=== PATIENT | male | born 1975 | race Caucasian/White ===

== ENCOUNTER 2017-03-23 13:28 | Emergency (ER) | payer BC, MEDICAID ==
[2017-03-23] MEDS ORDERED: Aspirin Low Dose CHEW TAB* 81 MG PO ONE (13:58)
[2017-03-23 14:16] VITALS: BP 135/84
--- NOTE | 2017-03-23 14:18 | UC ---
Dagmar Mccloud Salem, scribed for Lucero Krishna MD on 03/23/17 at 1353 . Dizzy HPI HPI Summary: Patient is a 42 y/o M who presents to the with chest pain, sob, dizziness progressively worse over last couple days. He reports that he bought a home this past year and it has been a bit musty. He reports finding brown mold on the madrigal of the house and that he has a hx of susceptibility to yellow mold. He attempted to clean the mold yesterday without using a face mask and slept in the house. He reports SOB, HEALY, confusion, and memory issues since. He states that his is asthmatic and she was in the ED recently with similar sx. He moved his family out of the house recently. Pain is midsternal. Non-reproducible. Non-positional. + dizzy with sitting up and standing up. Patients medication reviewed this visit. - History Of Current Complaint Stated Complaint: DIZZY SOB Time Seen by Provider: 03/23/17 13:47 Hx Obtained From: Patient Onset/Duration: Gradual Onset, Lasting Days, Still Present Timing: Days Severity Initially: Moderate Severity Currently: Moderate Pain Intensity: 0 Pain Scale Used: 0-10 Numeric Character: Dizzy Aggravating Factor(s): Position Change Alleviating Factor(s): Lying Down Associated Signs And Symptoms: Positive: SOB - Allergies/Home Medications Allergies/Adverse Reactions: Allergies Allergy/AdvReac Type Severity Reaction Status Date / Time No Known Allergies Allergy Verified 08/29/15 08:03 PMH/Surg Hx/FS Hx/Imm Hx Previously Healthy: Yes - Surgical History Surgical History: None - Family History Known Family History: Positive: Cardiac Disease - [place] grandfather, maternal., Hypertension, Other - [place]. TIA. - Social History Alcohol Use: None Substance Use Type: None Smoking Status (MU): Former Smoker - F0r 20 years, but hasn't for 7 years. Review of Systems Constitutional: Negative Skin: Negative Eyes: Negative ENT: Negative Respiratory: Other - See HPI. Cardiovascular: Chest Pain Gastrointestinal: Negative Genitourinary: Negative Motor: Weakness Neurovascular: Other - memory difficulty Musculoskeletal: Arthralgia, Myalgia Neurological: Headache All Other Systems Reviewed And Are Negative: Yes Physical Exam Triage Information Reviewed: Yes Appearance: Well-Nourished, Other: - Appears tired. Vital Signs: Initial Vital Signs Temp 98.2 F 03/23/17 13:33 Pulse 75 03/23/17 13:33 Resp 16 03/23/17 13:33 BP 148/82 03/23/17 13:33 Pulse Ox 100 03/23/17 13:33 Vital Signs Reviewed: Yes Eye Exam: Normal ENT Exam: Normal Neck exam: Normal Neck: Positive: Supple, Nontender Respiratory Exam: Normal - no dyspnea, no tachypnea, normal respiratory rate Respiratory: Positive: Chest non-tender, Lungs clear, Normal breath sounds, No respiratory distress, No accessory muscle use Cardiovascular Exam: Normal - Heart rate regular, good general skin color, good capillary refill Cardiovascular: Positive: RRR, No Murmur, Pulses Normal, Brisk Capillary Refill Abdominal Exam: Normal Abdomen Description: Positive: Nontender, No Organomegaly, Soft Bowel Sounds: Positive: Present Musculoskeletal Exam: Normal Musculoskeletal: Positive: Strength Intact Neurological Exam: Normal - nonfocal, grossly intact Psychological Exam: Normal - conversing easily and appropriately Skin Exam: Normal - no visible or reported rash, Other - Not diaphoretic. Diagnostics - EKG Cardiac Rate: NL - Sinus @ [address] elevation, probably nml recall pattern. NC: 144. QTc: 397. Dizzy Course/Dx - Course Course Of Treatment: No new problems in CCC. Reviewed ekg w/ pt and c/w previous ekg 2004 (repol / elev not noted in 2004). No wheezing noted at examination. No rash. D/w pt, recommend further evaluation and management in the ED. He expresses understanding and agreement, will go via EMS. D/W Dr Perrin , ED. Will order ASA and oxygen for transport. - Differential Dx/Diagnosis Provider Diagnoses: chest pain, sob, dizzy - Physician Notifications Discussed Patient Care With: Blade Perrin Time Discussed With Above Provider: 14:03 Instructed by Provider To: Other - Discussed case. Will accept transfer. Discharge - Discharge Plan Condition: Stable Disposition: TRANS HIGHER LVL OF CARE FAC Discharge Disposition Comment: [facility] [place] - ED. The documentation as recorded by the Dagmar childress Salem accurately reflects the service I personally performed and the decisions made by me, Lucero Krishna MD.
== END 2017-03-23 14:25 | disposition short-term general hospital (02) ==
LOC: UCEAST 13:28
DX: R07.9 Chest pain, unspecified (principal); R06.02 Shortness of breath; R42 Dizziness and giddiness; Z87.891 Personal history of nicotine dependence
CPT/HCPCS: 93005; 99213; A9270-GY; G0463

== ENCOUNTER 2017-03-23 14:40 | Observation (INO) | payer BC, MEDICAID ==
[2017-03-23 15:41] LABS: Hematocrit 46 % (42-52); Mean Corpuscular HGB Conc 35 g/dl (31-36); Mean Corpuscular Hemoglobin 32 pg (27-31); Mean Corpuscular Volume 94 fL (80-94); Mean Platelet Volume 9 um3 (7.4-10.4); Red Blood Count 4.95 10^6/ul (4.0-5.4); Red Cell Distribution Width 12 % (10.5-15); White Blood Count 7.4 10^3/ul (3.5-10.8)
[2017-03-23 15:52] LABS: ALT 24 U/L (7-52); AST 18 U/L (13-39); Albumin 4.6 g/dL (3.2-5.2); Alkaline Phosphatase 39 U/L (34-104); Anion Gap 9 mmol/L (2-11); BUN/Creatinine Ratio 13.5 (8-20); Blood Urea Nitrogen 15 mg/dL (6-24); C Reactive Protein < 1.00 mg/L (< 5.00); CO2 Carbon Dioxide 22 mmol/L (22-32); Calcium 9.9 mg/dL (8.6-10.3); Chloride 106 mmol/L (101-111); EGFR African American 93.9 (>60); Globulin 2.7 g/dL (2-4); Glucose 102 mg/dL (70-100); Magnesium 1.9 mg/dL (1.9-2.7); Sodium 137 mmol/L (133-145); Total Protein 7.3 g/dL (6.4-8.9)
[2017-03-23 15:56] LABS: Troponin I 0.04 ng/mL (<0.04)
[2017-03-23 16:00] LABS: TSH (Thyroid Stimulating Horm) 1.97 mcIU/mL (0.34-5.60)
[2017-03-23] MEDS ORDERED: Aspirin Low Dose CHEW TAB* 81 MG PO ONE (16:48)
[2017-03-23] MEDS ORDERED: Ondansetron INJ* 2 MG/ML VIAL IV PRN (16:48)
[2017-03-23] MEDS ORDERED: Acetaminophen TAB* 325 MG PO PRN (16:48)
--- NOTE | 2017-03-23 17:45 | RAD ---
Indication: Dyspnea on exertion. Dizziness. Comparison: August 29, 2015 Technique: Upright AP 1705 hours Report: Clear lungs and pleural spaces. Negative for pneumothorax. The heart, pulmonary vasculature, and mediastinal contours are unremarkable. Unremarkable osseous structures and soft tissue contours. IMPRESSION: No evidence for acute intrathoracic disease.
[2017-03-23 18:05] LABS: Urine Bilirubin Negative (Negative); Urine Glucose Negative (Negative); Urine Nitrite Negative (Negative)
[2017-03-23 18:19] LABS: Erythrocyte Sed Rate 8 mm/Hr (0-14)
--- NOTE | 2017-03-23 18:36 | ED ---
Christelle Mccloud Alfonso, scribed for Michael Stanley MD on 03/23/17 at 1516 . Dizziness - HPI Summary HPI Summary: This patient is a 42 year old male [facility] c/o gradually worsening dizziness since a few days ago. He is currently lightheaded, but is currently not experiencing any of his other reported symptoms. Symptoms aggravated by exertion and alleviated by nothing. He reports tiredness, a pressured headache (intermittent), photophobia, confusion, tremors, a metallic taste, and memory issues. He also reports pressured midsternal CP, SOB, urinary incontinence, and a dry mouth. He states there has been a "mold exposure issue in the house we moved into less than a year ago." He attempted to clean a " brown mold" off a wall yesterday without using a face mask. He states that his is asthmatic and she presented to the ED recently for "similar symptoms." He and his family moved out of the house yesterday. - History Of Current Complaint Chief Complaint: EDDizziness Stated Complaint: SOB/DIZZY Time Seen by Provider: 03/23/17 14:48 Hx Obtained From: Patient Onset/Duration: Resolved, Gradually - Since a few days ago Timing: Constant Severity Initially: Moderate Severity Currently: Moderate Character: Lightheaded, Dizzy Aggravating Factor(s): Exertion Alleviating Factor(s): Nothing Associated Signs And Symptoms: Positive: Chest Pain - pressured midsternal CP, SOB, Other: - Positive pressured headache (intermittent), tiredness, photophobia , confusion, tremors, a metallic taste, memory issues, urinary incontinence, and a dry mouth. - Allergies/Home Medications Allergies/Adverse Reactions: Allergies Allergy/AdvReac Type Severity Reaction Status Date / Time No Known Allergies Allergy Verified 08/29/15 08:03 Home Medications: Home Medications NK [No Home Medications Reported] 03/23/17 [History Confirmed 03/23/17] PMH/Surg Hx/FS Hx/Imm Hx Endocrine/Hematology History: Denies: Hx Diabetes, Hx Thyroid Disease Cardiovascular History: Denies: Hx Hypertension Respiratory History: Denies: Hx Asthma, Hx Chronic Obstructive Pulmonary Disease (COPD) GI History: Denies: Hx Ulcer Infectious Disease History: Denies: Hx Clostridium Difficile, Hx Hepatitis, Hx Human Immunodeficiency Virus (HIV), Hx of Known/Suspected MRSA, Hx Shingles, Hx Tuberculosis, Hx Known/ Suspected VRE, Hx Known/Suspected VRSA, History Other Infectious Disease - Family History Known Family History: Positive: Cardiac Disease - [place] grandfather, maternal., Hypertension, Other - [place]. TIA. - Social History Alcohol Use: None Substance Use Type: Reports: None Smoking Status (MU): Former Smoker - F0r 20 years, but hasn't for 7 years. Review of Systems Positive: Other - Positive dry mouth. Positive: Chest Pain - Pressued midsternal CP Positive: Shortness Of Breath Positive: incontinence Neurological: Other - Positive pressured headache (intermittent), dizziness, lightheadedness, tiredness, photophobia, confusion, tremors, a metallic taste, and memory issues. All Other Systems Reviewed And Are Negative: Yes Physical Exam Triage Information Reviewed: Yes Vital Signs On Initial Exam: Initial Vitals Temp Pulse Resp BP Pulse Ox 99.0 F 60 14 123/82 100 03/23/17 14:51 03/23/17 14:51 03/23/17 14:51 03/23/17 14:51 03/23/17 14:51 Vital Signs Reviewed: Yes Appearance: Positive: Well-Appearing, No Pain Distress Skin: Positive: Warm, Skin Color Reflects Adequate Perfusion, Dry Head/Face: Positive: Normal Head/Face Inspection Eyes: Positive: Normal ENT: Positive: Normal ENT inspection Neck: Positive: Supple, Nontender Respiratory/Lung Sounds: Positive: Clear to Auscultation, Breath Sounds Present Cardiovascular: Positive: RRR Abdomen Description: Positive: Nontender, Soft Bowel Sounds: Positive: Present Musculoskeletal: Positive: Normal Neurological: Positive: Normal, Sensory/Motor Intact, Alert, Oriented to Person Place, Time, CN Intact II-III Psychiatric: Positive: Affect/Mood Appropriate Diagnostics - Vital Signs Vital Signs Temp Pulse Resp BP Pulse Ox 03/23/17 16:30 56 12 137/87 99 03/23/17 16:00 56 11 124/70 100 03/23/17 15:33 58 16 124/86 98 03/23/17 15:31 58 17 126/88 99 03/23/17 15:28 61 14 120/84 98 03/23/17 15:04 64 14 141/98 98 03/23/17 15:03 61 14 99 03/23/17 14:58 14 03/23/17 14:51 99.0 F 60 14 123/82 100 - Laboratory Lab Results: Lab Results 03/23/17 03/23/17 03/23/17 Range/Units 14:00 14:00 14:00 WBC 7.4 (3.5-10.8) 10^3/ul RBC 4.95 (4.0-5.4) 10^6/ul Hgb 16.0 (14.0-18.0) g/dl Hct 46 (42-52) % MCV 94 (80-94) fL MCH 32 H (27-31) pg MCHC 35 (31-36) g/dl RDW 12 (10.5-15) % Plt Count 200 (150-450) 10^3/ul MPV 9 (7.4-10.4) um3 Neut % (Auto) 76.6 (38-83) % Lymph % (Auto) 16.9 L (25-47) % Garza % (Auto) 6.0 (1-9) % Eos % (Auto) 0.2 (0-6) % Baso % (Auto) 0.3 (0-2) % Absolute Neuts (auto) 5.6 (1.5-7.7) 10^3/ul Absolute Lymphs (auto) 1.2 (1.0-4.8) 10^3/ul Absolute Monos (auto) 0.4 (0-0.8) 10^3/ul Absolute Eos (auto) 0 (0-0.6) 10^3/ul Absolute Basos (auto) 0 (0-0.2) 10^3/ul Absolute Nucleated RBC 0 10^3/ul Nucleated RBC % 0 ESR 8 (0-14) mm/Hr D-Dimer, Quantitative < 200 (Less Than 230) ng/mL Sodium 137 (133-145) mmol/L Potassium 4.0 (3.5-5.0) mmol/L Chloride 106 (101-111) mmol/L Carbon Dioxide 22 (22-32) mmol/L Anion Gap 9 (2-11) mmol/L BUN 15 (6-24) mg/dL Creatinine 1.11 (0.67-1.17) mg/dL Est GFR ( Amer) 93.9 (>60) Est GFR (Non-Af Amer) 73.0 (>60) BUN/Creatinine Ratio 13.5 (8-20) Glucose 102 H (70-100) mg/dL Calcium 9.9 (8.6-10.3) mg/dL Magnesium 1.9 (1.9-2.7) mg/dL Total Bilirubin 0.50 (0.2-1.0) mg/dL AST 18 (13-39) U/L ALT 24 (7-52) U/L Alkaline Phosphatase 39 (34-104) U/L Troponin I 0.04 H* (<0.04) ng/mL C-Reactive Protein < 1.00 (< 5.00) mg/L Total Protein 7.3 (6.4-8.9) g/dL Albumin 4.6 (3.2-5.2) g/dL Globulin 2.7 (2-4) g/dL Albumin/Globulin Ratio 1.7 (1-3) TSH 1.97 (0.34-5.60) mcIU/mL Result Diagrams: 03/23/17 14:00 03/23/17 14:00 Lab Statement: Any lab studies that have been ordered have been reviewed, and results considered in the medical decision making process. - EKG 1538 Cardiac Rate: Bradycardia - BPM 54 EKG Rhythm: Sinus Bradycardia EKG Comparison: No Significant Change - EKG from [facility] earlier today Dizzy Course/Dx - Course Course Of Treatment: Mr. Amaro has an unusual cluster of symptoms, none of which are acute and all of which seem to be intermittent. His exam was unremarkable. His Trop returned indeterminant and I am concerned that I am missing something. I asked the hospitalist to evaluate him. - Diagnoses Provider Diagnoses: Dizziness - Provider Notifications Discussed Care Of Patient With: Danilo Douglas Time Discussed With Above Provider: 16:11 Instructed by Provider To: Other - Consulted Dr. Douglas (Neurologist) who recommends against CT head. Consulted Buck DE LA VEGA (Hospitalist) at 1620 who agrees to admit patient. Discharge - Discharge Plan Condition: Stable Disposition: ADMITTED TO [facility] documentation as recorded by the Christelle childress Alfonso accurately reflects the service I personally performed and the decisions made by me, Michael Stanley MD.
--- NOTE | 2017-03-23 18:54 | RAD ---
Indication: Dizziness since 2:00 PM today. Difficulty word finding. Comparison: No relevant prior exams available on the [facility] PACS for comparison. Technique: [employer] [place] 1.5 Yanet KE028I with GEM suite. MRI brain without contrast. Report: Diffusion series is negative for acute or subacute ischemia. Susceptibility series is negative for stigmata of hemosiderin deposition to indicate previous hemorrhage. Unremarkable cerebral sulci, ventricles, and basal cisterns. Normal patterns of signal intensity throughout the cerebrum and posterior fossa. No intra or extra-axial lesions or fluid collections evident. Preserved major intracranial flow-voids. Unremarkable orbital contents. No suspicious calvarial or skull base lesion evident. Subcentimeter mucous retention cyst or polyp in the floor of the LEFT maxillary sinus. The paranasal sinuses and mastoid air spaces are otherwise clear. IMPRESSION: Negative unenhanced MRI of the brain.
--- NOTE | 2017-03-24 03:08 | HP ---
CC: Dr. Osborne * HISTORY AND PHYSICAL: DATE OF ADMISSION: 03/23/17 PRIMARY CARE PROVIDER: None. ATTENDING PHYSICIAN WHILE IN THE HOSPITAL: Dr. Darian Jane* (report dictated by Ham Matias NP). CONSULTING INFECTIOUS DISEASE SPECIALIST: Dr. Osborne. CHIEF COMPLAINT: 1. Dyspnea on exertion. 2. Headache. 3. Dizziness. 4. Not feeling well. HISTORY OF PRESENT ILLNESS: Mr. Amaro is a 42-year-old male patient, who was previously healthy. He specifically denies having any cardiac disease and he denies having any medical problems or any recent surgical problems. He comes into the ER today stating over the last couple of weeks, he has noticed that he just had very vague symptoms. He says he has been having shortness of breath particularly with exertion. He says he has been having some tightness in his throat. He feels like he has a phlegm ball struck in his throat. He has had no cough, no fevers or chills. He says he has been feeling dizzy off and on and he has been noticing at times he has had confusion, having trouble getting his words out and knowing what he is wanting to say and he has noticed that off and on over the last 24 to 48 hours. He has not had any loss of consciousness, no fevers, chills, or any nausea, vomiting, or diarrhea. He does note that he recently was exposed to molds at one of his homes. His who is an asthmatic , had been controlled for years and then when she was at the house, she is now requiring steroids and inhalers whereas before she was very well controlled and he has noticed having these symptoms of confusion, feeling dizzy in the morning , feeling worsening shortness of breath particularly with exertion and having this throat tightness. He was concerned. His co-workers convinced him to come into the hospital. He was evaluated here in the ED. It did show that he had an mildly elevated troponin and because of this, the hospitalist service was asked to evaluate for admission. PAST MEDICAL HISTORY: Denied. PAST SURGICAL HISTORY: Denied. HOME MEDICATIONS: Denied. ALLERGIES TO MEDICATIONS: Include no known drug allergies. FAMILY HISTORY: His mother had a history of COPD. Father had a history of hypertension. SOCIAL HISTORY: He is a former smoker. 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 Surrogate decision maker is his . Denies any recreational drug use. He says he does work at [employer]. REVIEW OF SYSTEMS: There is no documented fever. He denied having any significant weight change. There was no double vision. He denies having any ear discharge. There was no rhinorrhea. No sore throat. No thyroid enlargement. He denies any chest pain currently. He denies having any abdominal pain. There was no nausea, vomiting, no dysuria. No frequency. No seizure. No loss of consciousness. No pruritus and no skin ulcerations. Review of 14 systems completed, all others negative. PHYSICAL EXAMINATION GENERAL: At this time, Mr. Amaro is a 42-year-old male patient. He appears to be well nourished, well developed. He does not appear to be in any acute distress. VITAL SIGNS: Blood pressure 137/87, pulse 57, respirations 12, O2 sat 99%, temperature 99.0. HEENT: Head: Atraumatic, normocephalic. Eyes: EOMs are intact. Sclerae anicteric and not pale. Throat: Oral mucosa appears to be moist. No oropharyngeal erythema. NECK: Supple. LUNGS: Clear to auscultation. No wheezes, rales, or rhonchi. HEART: Sounds S1, S2. Regular rate and rhythm. No murmurs, rubs, or gallops. ABDOMEN: Soft, flat, nontender. Bowel sounds present. EXTREMITIES: Pulses were 2+ throughout. He is able to move all 4 extremities with 5/5 strength. NEUROLOGIC: He is awake, he is alert. Speech is clear. Tongue was midline. His cork insulation installer were equal. [id number]-mr-[id number] intact bilaterally. Cyjh-wf-[id number] intact bilaterally. Cranial nerves II through XII were intact. No gross focal deficits were noted. No facial drooping. SKIN: Intact. LABORATORY DATA: Today revealed WBC 7.4, RBC of 4.95, hemoglobin 16.0, hematocrit of 46, platelet count of 200. His D-dimer was less than 200. Sodium was 137, potassium 4.0, chloride of 106, bicarb 22, BUN 15, creatinine 1.11, glucose 102, calcium 9.9, mag 1.9, total bili 0.5, AST 18, ALT 24, alk phos 39. His troponin was 0.04. Albumin was 4.6. His TSH was 1.97. He did have an EKG obtained today as well, which showed sinus bradycardia with a rate of 54, no ST elevation or T- wave inversions were noted. Chest x-ray is pending. Old medical records reviewed. ASSESSMENT AND PLAN: Mr. Amaro is a 42-year-old male patient coming into the ER today with multiple complaints, on evaluation was found to have elevated troponin. He will be admitted under observation status for: 1. Dyspnea on exertion in the setting of elevated troponin. Etiology is unclear. He denies having any chest pain. His EKG is stable. We will plan to go ahead and trend his troponins and get an echo. I have placed him on telemetry. I will give him an aspirin now. If they continue to elevate, his troponins, we will get a Cardiology consult. 2. . I did touch base with Dr. Osborne, who will be evaluating the patient tomorrow; but at this point, he does not appear to be actively infected. 3. Dizziness with difficulty word finding. Again, at this point his speech is clear. My plan is to go ahead and get an MRI of the patient's brain and if this is abnormal, then I will probably get a Neurology consult and we will continue to follow. 4. DVT prophylaxis. He will be placed on SCDs. 5. Code status. Full code. 6. Fluids, electrolytes and nutrition: He can have a regular diet. TIME SPENT: Time spent on the admission was 60 minutes, greater than half the time was spent [id number] with the patient obtaining my history and physical, other half the time spent going over the plan of care with the patient and implementing plan of care. I did discuss the plan of care with my attending, Dr. Jane, he is in agreement. HAM MATIAS, CEFERINO [id number]/[facility] #: [id number] HERMES
[2017-03-24 05:24] LABS: Hematocrit 48 % (42-52); Hemoglobin 16.3 g/dl (14.0-18.0); Mean Corpuscular HGB Conc 34 g/dl (31-36); Mean Corpuscular Hemoglobin 33 pg (27-31); Mean Corpuscular Volume 95 fL (80-94); Mean Platelet Volume 9 um3 (7.4-10.4); Red Blood Count 4.99 10^6/ul (4.0-5.4); Red Cell Distribution Width 13 % (10.5-15); White Blood Count 9.4 10^3/ul (3.5-10.8)
[2017-03-24 05:35] LABS: BUN/Creatinine Ratio 17.7 (8-20); Calcium 9.4 mg/dL (8.6-10.3); EGFR Non-African American 71.5 (>60); Potassium 3.9 mmol/L (3.5-5.0)
[2017-03-24] MEDS ORDERED: Aspirin Low Dose CHEW TAB* 81 MG PO SCH (09:00)
--- NOTE | 2017-03-24 10:16 | ECHO ---
Patient: ISAK STANLEY [facility] Rec#: [id number] : 1975 Date: 03/24/2017 Age: 42y Height: 175.26 cm / 69.0 in Weight: 75.75 kg / 167.0 lbs Sex: M BSA: 1.91 Room#: 452 Admit Date#: 03/23/2017 Type: Inpatient Referring: Ham Matias NP Reading: Nic Russo MD Violent Crimes Detective: Vianey Perrin RDCS Transthoracic Echocardiogram Indication: Dyspnea, chest pain BP: 117/68 HR: 47 Rhythm: Bradycardia Indications Shortness of Breath Findings History: Former smoker. Technical Comments: The study quality is good. Completed at 0830. Left Ventricle: The left ventricular chamber size is normal. There is no left ventricular hypertrophy. Global left ventricular wall motion and contractility are within normal limits.Bradycardia at approximately 50 bpm during the study. The estimated ejection fraction is 50-55%. Normal left ventricular diastolic filling is observed. Left Atrium: The left atrial chamber size is normal. Right Ventricle: Moderator Band present. The right ventricular cavity size is normal. The right ventricular global systolic function is normal. Right Atrium: The right atrial cavity size is normal. Aortic Valve: The aortic valve is trileaflet. There is no evidence of aortic regurgitation. There is no evidence of aortic stenosis. Mitral Valve: The mitral valve leaflets appear normal. There is a trace of mitral regurgitation. There is no evidence of mitral stenosis. Tricuspid Valve: The tricuspid valve leaflets are normal. There is a physiologic tricuspid regurgitation. No pulmonary hypertension is noted. There is no tricuspid stenosis. Pulmonic Valve: The pulmonic valve appears normal. There is a trace pulmonic regurgitation. There is no pulmonic stenosis. Pericardium: There is no significant pericardial effusion. Aorta: There is no dilatation of the ascending aorta. There is no dilatation of the aortic arch. There is no dilation of the aortic root. Pulmonary Artery: The main pulmonary artery is not well visualized. Venous: The inferior vena cava appears normal in size. There is a greater than 50% respiratory change in the inferior vena cava dimension. Summary: There was not any prior study for comparison. Conclusions Global left ventricular wall motion and contractility are within normal limits. Bradycardia at approximately 50 bpm during the study. The estimated ejection fraction is 50-55%, closer to 55%. There is a trace of mitral regurgitation. There is a physiologic tricuspid regurgitation. Measurements Name Value Normal Range RVIDd (AP) 2D 2.4 cm (0.9 - 2.6) RVDdMajor (2D) 3.2 cm (2.2 - 4.4) RAd ISD 4CH 4.6 cm (3.4 - 4.9) RA (A4C)W 3.8 cm (2.9 - 4.6) IVSd (2D) 0.8 cm (0.6 - 1) LVPWd (2D) 0.8 cm (0.6 - 1) LVIDd (2D) 5.2 cm (3.6 - 5.4) LVIDs (2D) 3.5 cm - LV FS (2D) 33 % (25 - 45) Aortic Annulus 2 cm (1.4 - 2.6) Ao root diameter (2D) 2.8 cm (2.1 - 3.5) Ascending Ao 3 cm (2.1 - 3.4) Aortic arch 2.3 cm (1.8 - 3.4) LA dimension (AP) 2D 3.5 cm (2.3 - 3.8) LAd ISD 4CH 5.3 cm (2.9 - 5.3) LA ISD 4CH W 3.7 cm (2.5 - 4.5) Name Value Normal Range LA ESV SP 4CH (A/L) 45 ml - LA ESV SP 2CH (A/L) 43 ml - LA ESV BP (A/L) 44 ml - LA ESV BP (A/L) index 23.29 ml/m2 - LA ESV SP 4CH (MOD) 42 ml - LA ESV SP 2CH (MOD) 42 ml - Name Value Normal Range MV E-wave Vmax 0.49 m/sec - MV deceleration time 235.5 msec - MV A-wave Vmax 0.38 m/sec - MV E:A ratio 1.3 ratio - LV septal e' Vmax 0.09 m/sec - LV lateral e' Vmax 0.16 m/sec - LV E:e' septal ratio 5.44 ratio - LV E:e' lateral ratio 3.06 ratio - Name Value Normal Range AV Vmax 1.24 m/sec - AV VTI 25.3 cm - AV peak gradient 6.19 mmHg - AV mean gradient 3.47 mmHg - LVOT Vmax 1.15 m/sec - LVOT VTI 23.13 cm - LVOT peak gradient 5.38 mmHg - LVOT mean gradient 2.97 mmHg - JOSE ENRIQUE Vmax 0.84 m/sec - Name Value Normal Range TR Vmax 1.9 m/sec - TR peak gradient 14 mmHg - RAP 3 mmHg - RVSP 17 mmHg - IVC diameter 1.8 cm - Name Value Normal Range PV Vmax 0.96 m/sec - PV peak gradient 3.72 mmHg -
--- NOTE | 2017-03-24 11:12 | DCNOTE ---
Patient seen this morning. Reports a slight episode of dizziness this morning. No SOB or difficulty breathing. Does not report any wheezing. On exam, RRR, s1 and s2 present, no m/g/r, abd soft, NTND, BS+, lungs CTA B/L, no w/r/r Explained that all of patient's testing has been normal. He has an upcoming appointment with hand knitter. Does not want help setting up PCP appointment as he would like someone with a holistic approach and would like to choose. Will provide number for ID appointment if wanted. D/C home.
[2017-03-24 12:50] VITALS: BP 108/73
--- NOTE | 2017-03-25 12:00 | DS ---
DISCHARGE SUMMARY: DATE OF ADMISSION: 03/23/17 DATE OF DISCHARGE: 03/24/17 PRIMARY CARE PHYSICIAN: None. PRINCIPAL DISCHARGE DIAGNOSIS: Intermittent episodes of shortness of breath and dizziness, unclear etiology. DISCHARGE MEDICATION REGIMEN: None. STUDIES DONE DURING HOSPITALIZATION: MRI of the brain without contrast. Impression: Negative, unen hanced MRI of the brain. Transthoracic echocardiogram, conclusion is normal. Left ventricular wall motion and contractility, bradycardia. Estimated ejection fraction is 50% to 55%. Trace mitral reg urgitation, physiological tricuspid regurgitation. Chest x-ray, impression: No evidence for acute intrathoracic disease. HISTORY OF PRESENT ILLNESS AND HOSPITAL SUMMARY: Please see my full history and physical by Ham buckley NP for full details. Briefly, Mr. Amaro is a 42-year- old man who presents to the [facility] with reports of episodic shortness of breath, lightheadedness, some intermittent facial numbness a nd sensation of having a phlegm ball stuck in his throat, which has been going on for the past few w eeks intermittently. Symptoms will sometimes come with exertion and other times at rest. The patie nt's blood work was largely normal in the emergency department aside from a minimally elevated tropo rick of 0.04. The patient was admitted to the hospital overnight. Troponins were trended and decrea sed to 0 from there. The CRP was negative. D-dimer was negative. The patient had no clear signs o f infection. He underwent MRI, echo and chest x-ray as above, which were all unremarkable. The mendy ent stated that he has had to move his family out of their new house recently due to mold, which he thinks may be the culprit. An infectious disease consult was placed, but unfortunately, Dr. Juan J cortés was away at a conference on the day of discharge and I did not feel that it was necessary to keep the patient in the hospital for this. He could follow up with him as an outpatient if he decides to . The patient prefers a holistic approach to medicine and was not interested in a referral for a new PCP. He prefers to do the research on his own. He does state that he has an upcoming appointment with an zoogler, whom his has seen before, which he made for himself due to these mold issues . The patient will be discharged home and will make a new PCP appointment for himself. TIME SPENT: Total time spent on this discharge was 30 minutes. This is a summary of the hospitalization, please see the full medical record for further details. [id number]/[facility] #: [id number]
== END 2017-03-24 14:09 | disposition home or self-care (01) ==
LOC: ED 14:40 → MEDTELE 16:45 → UNDOADMOB 17:31
PROVIDERS: ADMIT Hospitalist; ATTEND Hospitalist
DX: R06.02 Shortness of breath (principal); R42 Dizziness and giddiness; Z87.891 Personal history of nicotine dependence
CPT/HCPCS: 36415; 70551; 71010; 80048; 80053; 81003; 83605; 83735; 84443; 84484; 85025; 85379; 85652; 86140; 93005; 93306; 96374; 96375; 99284; A9270-GY; G0378

== ENCOUNTER 2017-04-06 11:50 | Emergency (ER) | payer BC, MEDICAID ==
--- NOTE | 2017-04-06 12:02 | UC ---
Respiratory Complaint HPI - HPI Summary HPI Summary: Sudden onset SOB with tightness in front of his chest and a feeling of fullness in his throat approx 1.5 hours ago. Keeps clearing throat without production. Took his xopenex without relief, this was his first time taking it after proair seemed to exacerbate symptoms. Was recently diagnosed with asthma by Dr. Nelson due to his allergies. Has had problems with anxiety before. - History of Current Complaint Stated Complaint: ASTHMA Time Seen by Provider: 04/06/17 11:52 Hx Obtained From: Patient Onset/Duration: Sudden Onset Timing: Constant Severity Initially: Moderate Severity Currently: Moderate Aggravating Factors: Exertion Alleviating Factors: Nothing Associated Signs And Symptoms: Positive: Dyspnea. Negative: Fever, Chills, Wheezing, Calf Pain - Allergies/Home Medications Allergies/Adverse Reactions: Allergies Allergy/AdvReac Type Severity Reaction Status Date / Time No Known Allergies Allergy Verified 04/06/17 11:59 Home Medications: Home Medications Fexofenadine-Pseudoephedrine [Claire-D 24 Hour Allergy] 1 tab PO DAILY [History Confirmed 04/06/17] Levalbuterol HFA INHALER* [Xopenex Hfa Inhaler*] 2 puff INH Q6H PRN 04/06/17 [ History Confirmed 04/06/17] Mometasone/Formoter 200/5 MDI* [Dulera 200/5 MDI*] 2 puff INH BID 04/06/17 [ History Confirmed 04/06/17] Pseudoephedrine-Guaifenesin [Mucinex D 60-600 mg] 1 tab PO DAILY PRN 04/06/17 [ History Confirmed 04/06/17] PMH/Surg Hx/FS Hx/Imm Hx Respiratory History: Asthma Other Respiratory History: allergies - Surgical History Surgical History: None - Family History Known Family History: Positive: Cardiac Disease - [place] grandfather, maternal., Hypertension, Other - [place]. TIA. - Social History Alcohol Use: None Alcohol Amount: recovering alcoholic Substance Use Type: None Substance Use Comment - Amount & Last Used: marijuanna use in past Smoking Status (MU): Former Smoker - F0r 20 years, but hasn't for 7 years. Review of Systems Constitutional: Negative Skin: Negative Eyes: Negative ENT: Negative Respiratory: Shortness Of Breath Cardiovascular: Chest Pain Gastrointestinal: Negative Genitourinary: Negative Motor: Negative Neurovascular: Negative Musculoskeletal: Negative Neurological: Negative Psychological: Negative All Other Systems Reviewed And Are Negative: Yes Physical Exam Triage Information Reviewed: Yes Appearance: Ill-Appearing - anxious, increased WOB Vital Signs Reviewed: Yes Eye Exam: Normal Eyes: Positive: Conjunctiva Clear ENT Exam: Normal ENT: Positive: Normal ENT inspection, Hearing grossly normal, Pharynx normal, TMs normal Dental Exam: Normal Neck exam: Normal Neck: Positive: Supple, Nontender, No Lymphadenopathy Respiratory: Positive: Chest non-tender, Lungs clear, Normal breath sounds. Negative: Crackles, Rhonchi, Wheezing Cardiovascular: Positive: Bradycardia - slight Musculoskeletal Exam: Normal Neurological Exam: Normal Neurological: Positive: Alert Psychological Exam: Normal Skin Exam: Normal Respiratory Course/Dx - Course Course Of Treatment: because of recent work-up for identical symptoms, pt does not want to go to ED. Discussed risks of [place], PE, and other life-threatening causes of chest pain and SOB, pt understands and states he is feeling better while sitting in our clinic. We discussed his symptoms at length and potential other tests or specialists to see. Pt will pursue PFTs with Dr. Nelson, I will refer to [facility] for PCP. Pt will go to ED for any new or worsening symptoms. - Differential Dx/Diagnosis Differential Diagnosis/HQI/PQRI: Aspiration, Asthma, Bronchitis, CHF, Pneumothorax, Pulmonary Embolism Provider Diagnoses: shortness of breath. throat irritation Discharge - Discharge Plan Condition: Stable Disposition: AGAINST MEDICAL ADVICE Patient Education Materials: Dyspnea (ED) Additional Instructions: I am unable to determine the cause of your sudden attacks of shortness of breath. Since your cadiac workup in the hospital did not show problems, it would make sense to do more in-depth lung testing, starting with Dr. Nelson. If all physical causes of your throat lump and trouble breathing can be reasonably ruled out, it is possible that anxiety may be underlying these attacks. In any case, there is very little risk in making sure you are sleeping every night, eating regular meals (including breakfast), and starting mindfulness-based relaxation techniques while you await further testing. Please go to the emergency department right away if you develop increasing symptoms with nausea, vomiting, sweating, passing out, chest pain, or inability to speak or swallow.
[2017-04-06 12:09] VITALS: BP 156/92
[2017-04-06] MEDS ORDERED: Albuterol/Ipratropium NEB.SOL* Albuterol 2.5 MG/Ipratropium 0.5 MG 3 ML INH ONE (12:50)
== END 2017-04-06 13:20 | disposition left against medical advice (07) ==
LOC: UCEAST 11:50
DX: R06.02 Shortness of breath (principal); R07.0 Pain in throat; F41.9 Anxiety disorder, unspecified; J45.909 Unspecified asthma, uncomplicated; Z87.891 Personal history of nicotine dependence
CPT/HCPCS: 93005; 99212; A9270-GY; G0463